=== PATIENT | female | born 1960 | race Caucasian/White ===

== ENCOUNTER → 2016-09-21 | Outpatient (CLI) | payer BC, OTHER ==
[~2016-09-21] MED LIST: ACET-1311 PO; ASPI81TA28 PO; ATV1 PO; CALC1TAB56 PO; CHOL1000 PO; CLON0.5T3 PO; CLX20 PO; DILT120C68 PO; MELO7.5T5 PO; MULT-506 PO; OXGN; RISP2TAB22 PO; RISP3TAB12 PO; ROPI2TAB6 PO; SERT-234 PO; SIMV20TA2 PO; [UNRECOGNIZED DRUG - OTHER] PO
--- NOTE | 2016-09-21 14:23 | DIAGNOSTIC IMAGING REPORT ---
Lymphoscintigraphy LYMPH SENTINEL NODE ID CLINICAL HISTORY: LEFT BREAST CA breast carcinoma TECHNIQUE: Sequential injection of a total 1.025 mCi technetium 99m sulfur colloid. COMPARISON STUDY: None FINDINGS: Successful series of injections IMPRESSION: Successful series of injections Electronically signed by: Liu Rhoades M.D. 09/21/2016 2:20 PM Dictated Date/Time: 09/21/2016 2:20 PM
== END | disposition home or self-care (01) ==
LOC: C.NUCL 13:04
PROVIDERS: ATTEND Surgery
DX: C50.912 Malignant neoplasm of unspecified site of left female breast (principal)

== ENCOUNTER → 2016-12-21 | Outpatient (CLI) | payer BC ==
[~2016-12-21] MED LIST changes: -CLX20 PO; -RISP3TAB12 PO
[2016-12-21 14:03] VITALS: BP 115/74; PULSE 82; TEMP 37; O2SAT 95
--- NOTE | 2016-12-21 16:56 | Radiation Oncology Follow-Up ---
Radiation Oncology Follow-Up Date of Visit Dec 21, 2016. Reason For Visit One-month follow-up and cancer survivorship care plan Radiation Completion Date finished 11-20-16 , utilizing accelerated partial breast irradiation Diagnosis (1) Breast cancer Status: Acute Onset Date: 08/30/2016 Histology Subtype: ductal Stage: l (A) Permanent Comment: Abnormal left breast mammogram Status post ultrasound-guided core needle biopsy 08/30/2016 Infiltrating ductal adenocarcinoma, grade 3 Estrogen receptor positive, progesterone receptor positive, HER-2/michelle negative Status post left breast lumpectomy and sentinel lymph node biopsy 09/25/2016 Stage pTIb pN0M0 Oncotype DX score of 13 Status post completion of radiation therapy 11/20/2016. She received 3850 cGy utilizing accelerated partial breast irradiation. Last Edited By: Yun Stevens on Nov 30, 2016 10:37 History of Present Illness Ms. Casillas is a 56-year-old female without a family history of breast cancer. She underwent bilateral screening mammograms on 08/17/2016 at [facility]. This was compared to her most recent prior mammogram from 04/28/2013. This recent study showed an interval development of a small 1 cm irregular density with spiculation in the upper outer quadrant of the left breast. Spot compression views and targeted ultrasound were recommended. On 08/28/2016 patient underwent additional studies. The left breast diagnostic mammogram confirmed an asymmetric spiculated density in the upper outer left breast which persists on compression views. A targeted ultrasound was performed. This showed at the 12 o'clock position a poorly circumscribed nodular lobulated heterogeneous lesion measuring 0.8 x 0.6 x 0.9 cm. She was felt to be highly suspicious and was given a BI-RADS Category 4 with ultrasound-guided biopsy recommended. On 08/30/2016 the patient underwent an ultrasound-guided core needle biopsy of the left breast. This tissue identified an infiltrative ductal adenocarcinoma, grade 2. No lymphovascular invasion is seen. No in situ component is noted. Estrogen receptors were positive (100%, strong). Progesterone receptors were positive (90%, strong). HER-2/michelle overexpression was negative (1+). This tissue was evaluated by FISH analysis and was also negative confirming the results by IHC. Specimen: [id number] and Case: [id number]. Patient was seen by Dr. Bryant. He discussed treatment options with the patient. She opted to proceed with breast conserving therapy and sentinel node biopsy. This procedure was ultimately performed on 09/22/2016. 3 sentinel nodes were identified and all 3 were negative. The partial mastectomy specimen confirmed an infiltrative duct adenocarcinoma [place] grade 3. No DCIS was appreciated. The tumor measured 1.0 x 1.0 x 1.0 cm. There was no lymphatic or vascular space invasion and no perineural invasion. The margins of the invasive carcinoma were uninvolved. The distance from the closest margin was 0.3 cm from the inferior margin. The AJCC staging is therefore pT1b pN0(sn-), ER positive, PA positive and HER-2/michelle negative. Case: [id number]. Patient's tissue was sent for Oncotype DX evaluation and was seen by Dr. Eliud Arvizu on 10/18/2016 for discussion of the role of adjuvant systemic therapy. The recurrence score was a 13. This places the patient in a low risk category. Based on this information no adjuvant systemic chemotherapy was recommended. Adjuvant aromatase inhibitor therapy for 5 years was recommended to proceed after the completion of her adjuvant radiation. She would therefore start Letrozole following the completion of her radiation. It is to discuss the role of adjuvant radiation that the patient is being seen in referral. She underwent a CT simulation was found to be a candidate for accelerated partial breast treatment. Radiation was completed 11/20/2016. She received 3850 cGy. Interim History She's been doing well over the past month. She did not develop any area of redness or discomfort of the breast. There was no peeling of the skin. She noticed no dark discoloration. She has been started on an aromatase inhibitor. She is having hot flashes. She states these happen approximately 15 times per day. She is going to have a bone density study on December 27. She is not currently scheduled for follow-up mammography. Allergies Coded Allergies: No Known Allergies (Verified Allergy, Unknown, 06/12/08) Home Medications Scheduled Acetaminophen (Tylenol), 650 MG PO PRN Aspirin (Aspirin Ec), 81 MG PO DAILY Calcium-Magnesium W/ Vitamin D (Citracal Calcium+D Slow R), 2 TABS PO DAILY Cholecalciferol (Vitamin D3), 1 TAB PO DAILY Clonazepam (Klonopin), 0.5 MG PO TID Diltiazem Hcl Ext Rel (Tiazac), 120 MG PO DAILY Home O2 Therapy (Oxygen), 2 LITERS NA HS Letrozole (Femara), 1 TAB PO DAILY Meloxicam (Mobic), 15 MG PO DAILY Multivitamin (Multivitamin), 1 TAB PO DAILY Risperidone (Risperdal), 2 MG PO DAILY Ropinirole (Requip), 2 MG PO DAILY Sertraline (Zoloft), 150 MG PO DAILY Simvastatin (Zocor), 1 TAB PO HS Review of Systems Gastrointestinal: Symptoms: WNL Oral: Symptoms: No Problems Respiratory: Symptoms: WNL Urinary: Symptoms: WNL Skin: Symptoms: No Problems Breast: Right Upper Arm Measurement: 50.0 Right Mid Arm Measurement: 34.0 Right Wrist Measurement: 18.6 Left Upper Arm Measurement: 48.0 Left Mid Arm Measurement: 33.5 Left Wrist Measurement: 18.7 Arm Dominence: Right Patient Cosmetic Evaluation: Excellent Staff Cosmetic Evalaluation: Excellent Additional Notes: She completed a distress management report and answered "no" to all questions. Physical Exam Vital Signs Date Time Temp Pulse Resp B/P (MAP) Pulse Ox O2 Delivery O2 Flow Rate FiO2 12/21/16 14:03 37.0 82 20 115/74 95 Pain: Side: Bilateral Patient Pain Scale: 0 - 10 Initial Pain Intensity: 0.0 Fatigue: None General Appearance: no apparent distress Eyes: normal inspection, EOMI ENT: normal ENT inspection, hearing grossly normal Neck: no adenopathy, thyroid normal Respiratory/Chest: lungs clear, no respiratory distress, no accessory muscle use Breast: Breast examination reveals well-healed incisions of the left breast there are no masses or tenderness and no axillary adenopathy. There are no skin retractions or nipple changes. She has no wet or dry desquamation. Using the Echola score cosmesis she has a excellent outcome. The right breast showed no masses or tenderness and no axillary adenopathy. Cardiovascular: regular rate, rhythm, no gallop, no murmur Extremities: no pedal edema Neurologic/Psychiatric: no motor/sensory deficits, alert, normal mood/affect Skin: warm/dry Laboratory Studies Test 09/22/16 00:00 09/22/16 15:53 Reference Lab Test Result HER-2 (FISH) See Comment Lab Scanned Report Lab Referral [id number] Assessment & Plan Plan: We discussed using vitamin E to help with the hot flashes. She'll continue on the aromatase inhibitor. Continue regular follow-up with Dr. Bryant, Dr. Novak, and Dr. Lara. Mammography was scheduled for the left breast in 2 months. She'll have bilateral mammography in 8 months. These will be digital diagnostic mammograms. Today we completed a cancer survivorship care plan. A copy of the document was given to the patient. We discussed smoke cessation. She is going to continue to wean off of cigarettes. She is down to one half pack per day. We asked her to return to our office in 6 months. She may call if she has any questions or concerns in the interim. Total Time In Follow-Up I spent 20 minutes speaking to the patient and performing examination. I spent 20 minutes reviewing information, preparing the survivorship document, and completing is note. Copy To Micah Bryant M.D.; Guillermo Novak MD; Oj Lara DO Problem Qualifiers (1) Breast cancer: Breast location: upper outer quadrant of breast Estrogen receptor status: positive Patient sex: female Laterality: left Qualified Codes: C50.412 - Malignant neoplasm of upper-outer quadrant of left female breast; Z17.0 - Estrogen receptor positive status [ER+]
== END | disposition home or self-care (01) ==
LOC: C.ONC 13:55
PROVIDERS: ATTEND Physician Assistant Medical
DX: Z08 Encounter for follow-up examination after completed treatment for malignant neoplasm (principal); Z92.3 Personal history of irradiation; Z85.3 Personal history of malignant neoplasm of breast

== ENCOUNTER → 2017-01-15 | Outpatient (CLI) | payer BC ==
[~2017-01-15] MED LIST changes: -ATV1 PO
--- NOTE | 2017-02-12 07:18 | CODING QUERY MEDICAL NECESSITY ---
CQSUPPORTING DIAGNOSIS NEEDED A supporting diagnosis is required for the test/procedure performed on this patient in order for us to be reimbursed by the patient's insurance. Please provide a supporting diagnosis for the following test/procedure listed below next to the test name along with your signature. *If there is no additional diagnosis for this patient that would support the following test/procedure please document that below next to the test/procedure. Test(s)/Procedure(s) that require a supporting diagnosis: HENRI 01/15/17 BONE MINERAL DENSITY STUDY Provider Signature: Date: Thank you Munira Rosa Health Information Management Once completed, please kindly fax back to [phone] For questions please call [phone]
== END | disposition home or self-care (01) ==
LOC: C.MAMM 12:37
PROVIDERS: ATTEND Internal Medicine Hematology & Oncology
DX: C50.919 Malignant neoplasm of unspecified site of unspecified female breast (principal)